=== PATIENT | male | born 2000 | race Hispanic/Latino ===

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

== ENCOUNTER 2023-10-04 09:58 | Emergency (ER) | payer BC, SELFPAY ==
--- NOTE | ~2023-10-04 | CT_ITS ---
EXAMINATION: CT brain wo con DATE: 10/04/2023 11:43 INDICATION: Headache. TECHNIQUE: Computed tomography (CT) of the head was performed without intravenous contrast. The mA wa s adjusted according to patient size. Iterative reconstruction technique was employed. The dose-lengt h product was 605.33 mGy-cm. COMPARISON: None FINDINGS: There is no intracranial hemorrhage, acute infarction, or abnormal intracranial mass lesion . The ventricles are normal in size. The paranasal sinuses are clear. The orbits are normal. The mast oid air cells are normal. IMPRESSION: 1. Normal brain. Reviewed, dictated and finalized at location A. IMPRESSION: 1. Normal brain.
[2023-10-04 10:02] VITALS: BP 124/67; PULSE 71; RESP 20; TEMP 36.6; O2SAT 98
--- NOTE | 2023-10-04 10:54 | ED.GENADULT ---
HPI - General Adult General Chief complaint: Eye Problems Stated complaint: blurry vision Time Seen by Provider: 10/04/23 10:24 Source: patient and family Mode of arrival: ambulatory Limitations: no limitations History of Present Illness HPI narrative: Pt is a 23-year-old male who presents to the ER with blurry vision. He reports his blurry vision started around 0930 this morning, then he developed a metallic taste in his mouth. When pt arrived to the ER he started having a headache that wraps around my head. He reports his blurry vision has resolved and the headache is intermittent in strength. Pt reports he hasn't had any recent feeling of illness. He denies weakness in extremities, neck stiffness, or loss of sensation. Related Data Allergies Allergy/AdvReac Type Severity Reaction Status Date / Time No Known Allergies Allergy Unverified 07/18/21 18:31 Review of Systems Review of Systems: All systems reviewed & are unremarkable except as noted in HPI and below PMFSH Past Medical History Medical History COVID-19 May of 2020 and July 2021 Surgical History Surgical History S/P trigger finger release Social History Social History Smoking status: Never smoker Alcohol intake: never Substance use type: does not use Living arrangements: with roommate(s) Gender identity (if verbalized by the patient): Male Exam Narrative: GENERAL: Well-appearing, well-nourished and in no acute distress. HEENT: Head normocephalic, atraumatic. Eyes pupils equal round and reactive to light, extraocular movements intact. NECK: Supple, normal range of motion, no JVD. No lymphadenopathy. CARDIAC: Regular rate and rhythm without murmurs, rubs or gallops. RESPIRATORY: Clear to auscultation bilaterally. No wheezes, rales or rhonchi. EXTREMITIES: Normal range of motion, no swelling, clubbing or other deformities. NEUROLOGICAL: Cranial nerves II through XII grossly intact, no focal deficits noted. Normal gait, normal speech. SKIN: Warm, dry, normal color, no rashes, no lesions. Course Vital Signs Vital signs: Vital Signs Temperature 36.6 C 10/04/23 10:02 Pulse Rate 71 10/04/23 10:02 Respiratory Rate 20 10/04/23 10:02 Blood Pressure 124/67 10/04/23 10:02 Pulse Oximetry 98 10/04/23 10:02 Oxygen Delivery Room Air 10/04/23 10:02 Temperature 36.6 C 10/04/23 10:02 Pulse Rate 63 10/04/23 12:31 Respiratory Rate 16 10/04/23 12:31 Blood Pressure 120/82 10/04/23 12:31 Pulse Oximetry 100 10/04/23 12:31 Oxygen Delivery Room Air 10/04/23 10:02 Medical Decision Making MDM Narrative Medical decision making narrative: Pt is a 23-year-old male who presents to the ER with blurry vision. He reports his blurry vision started around 0930 this morning, then he developed a metallic taste in his mouth. When pt arrived to the ER he started having a headache that wraps around my head. He reports his blurry vision has resolved and the headache is intermittent in strength. Pt reports he hasn't had any recent feeling of illness. He denies weakness in extremities, neck stiffness, or loss of sensation. Pt's physical exam is unremarkable. His neurological checks are all WNL. He has equal strength in all extremities. PERRLA. Will obtain head CT scan, as this is pt's first severe headache, as advised by Ione Subarachnoid Hemorrhage (SAH) Rule for Headache Evaluation. Pt's CT scan was negative. Results relayed to pt and his parents. Advised pt to follow-up with PCP if his headache symptoms continue. Neuro examination continues to be unremarkable. Pt and his parents verbalize understanding of when pt should return to the ER. Differential Diagnosis Differential Diagnosis: migraine headache, subarachnoid hemorrhage, t
[2023-10-04 12:31] VITALS: BP 120/82; PULSE 63; RESP 16; O2SAT 100
[2023-10-04] MEDS: IBUPROFEN 600 MG TABLET PO (12:58)
== END 2023-10-04 13:15 | disposition home or self-care (01) ==
PROVIDERS: Emergency Provider Registered Nurse
DX: R51.9 Headache, unspecified (principal); Z86.16 Personal history of COVID-19
CPT/HCPCS: 70450; 99284; A9270

== ENCOUNTER 2024-01-01 17:40 | Emergency (ER) | payer BC, SELFPAY ==
[2024-01-01] VITALS (11 sets, daily range): BP systolic 110–122; BP diastolic 70–73; PULSE 56–70; RESP 14–26; TEMP 36.7; O2SAT 97–100
--- NOTE | ~2024-01-01 | XR_ITS ---
CHEST RADIOGRAPH, PA AND LATERAL CLINICAL HISTORY: chest pain . COMPARISON: 07/18/2021 TECHNIQUE: PA and lateral views of the chest. FINDINGS The cardiomediastinal silhouette is unremarkable. The lungs are clear. Visualized osseous structures and soft tissues are unremarkable. IMPRESSION: No focal infiltrate or effusion. Reviewed, dictated and finalized at location A. HING COACH
--- NOTE | 2024-01-01 17:48 | ECG_ITS ---
Test Date: 2024-01-01 17:50:54 Measurements Intervals Hospers Rate: 56 P: 45 HI: 136 QRS: 87 QRSD: 97 T: 36 QT: 380 QTc: 368 Interpretive Statements SINUS BRADYCARDIA MINIMAL Q WAVES- INF/LAT LEADS BASELINE ARTIFACT- I, III, AVR, AVL, AVF BORDERLINE ECG No previous ECG available for comparison Electronically Signed On 01-01-2024 20:24:50 [employer] OPER[employer] by Remberto Viramontes D.O.
--- NOTE | 2024-01-01 17:49 | ED_ITS ---
HPI - Chest Pain General Chief Complaint: Chest Pain Stated Complaint: chest pain X9 hours Time Seen by Provider: 01/01/24 17:48 History of Present Illness HPI narrative: patient is a 23-year-old male who presents ER with chest pain. Woke up with the pain this morning at 8:00 a.m.. It is over left chest wall anteriorly. No difficulty breathing. No difficulty swallowing. No exertional discomfort. Worse with moving his arm. Denies any trauma. No family history of early cardiac . No hemoptysis. Has not tried a pain medication. Related Data Allergies Allergy/AdvReac Type Severity Reaction Status Date / Time No Known Allergies Allergy Unverified 01/01/24 17:41 Review of Systems Review of Systems: All systems reviewed & are unremarkable except as noted in HPI and below Constitutional: Constitutional: Reports no additional constitutional complaints ENT: Reports system reviewed and no additional complaints, except as documented Cardiovascular: Cardiovascular: Reports chest pain, Denies rapid heart rate and Denies radiating jaw, neck or arm pain Respiratory: Respiratory: Reports no additional respiratory complaints Gastrointestinal: Gastrointestinal: Reports no additional gastrointestinal complaints [facility] Past Medical History Medical History COVID-19 May of 2020 and July 2021 Surgical History Surgical History S/P trigger finger release Social History Social History Smoking status: Never smoker Alcohol intake: never Substance use type: does not use Living arrangements: with roommate(s) Gender identity (if verbalized by the patient): Male Exam Narrative: GENERAL: Well-appearing, well-nourished, and in no acute distress. HEAD: Normocephalic, atraumatic. ENT: Mucous membranes moist. NECK: Supple. CHEST: Clear to auscultation. No respiratory distress. Mild tenderness over left pectoralis. HEART: Regular rate and rhythm. Normal peripheral pulses. ABDOMEN: Soft, nontender, nondistended. EXTREMITIES: Normal range of motion. No edema. SKIN: Warm, dry, no rash. NEURO: Alert and oriented x3. PSYCH: Normal mood and affect. Course Course Emergency Course: Chest pain nearly resolved with Toradol. Feels improved. Informed of lab and imaging EKG results. Appropriate for discharge home. Vital Signs Vital signs: Vital Signs Temperature 98.0 F 01/01/24 17:48 Pulse Rate 60 01/01/24 17:48 Respiratory Rate 16 01/01/24 17:48 Blood Pressure 110/70 01/01/24 17:48 Pulse Oximetry 99 01/01/24 17:48 Oxygen Delivery Room Air 01/01/24 17:48 Temperature 98.0 F 01/01/24 17:48 Pulse Rate 59 L 01/01/24 19:20 Respiratory Rate 18 01/01/24 19:20 Blood Pressure 122/73 01/01/24 19:20 Pulse Oximetry 97 01/01/24 19:20 Oxygen Delivery Room Air 01/01/24 18:06 MDM - Chest Pain Lab Data 01/01/24 18:01 01/01/24 18:01 Labs: Lab Results 01/01/24 Range/Units 18:01 WBC 5.1 (4.5-10.0) K/mm3 RBC 4.56 L (4.6-6.20) M/mm3 Hgb 14.0 (14.0-18.0) g/dL Hct 40.9 L (42.0-52.0) % MCV 89.7 (80-100) fl MCH 30.7 (26-34) pg MCHC 34.2 (32-36) g/dl RDW 12.2 (11.5-14.5) % Plt Count 249 (150-375) k/mm3 MPV 10.4 (7.4-10.4) fl Immature Gran % (Auto) 0.0 (0-0.5) % Neut % (Auto) 40.5 L (45.5-73.1) % Lymph % (Auto) 45.3 H (18.3-44.2) % [place] % (Auto) 12.2 H (2.6-8.5) % Eos % (Auto) 1.2 (0-4.4) % Baso % (Auto) 0.8 (0.2-1.2) % Lymph # (Auto) 2.31 (0.9-3.2) K/mm3 [place] # (Auto) 0.6 (0.1-0.6) K/mm3 Eos # (Auto) 0.1 (0-0.3) K/mm3 Baso # (Auto) 0.0 (0.0-0.1) K/mm3 Abs Immat Gran (auto) 0.00 (0.00-0.031) K/mm3 Absolute Neuts (auto) 2.1 (1.3-6.7) K/mm3 Absolute Nucleated RBC 0.000 (0.0-0.012) K/mm3 Nucleated RBC % 0.0 (0.0-0.2) % PT 13.9 (11.1-14.7) Seconds INR 1.0 APTT 26.8 (22.3-36.8) Seconds Sodium 138 (137-145) mmol/L Potassium 4.0 (3.4-5.0) mmol/L Chloride 104 (98-107) mmol/L Carbon Dioxide 27 (22-30) mmol/L Anion Gap 7 (4-12) mmol/L BUN 9 (9-20) mg/dL Creatinine 0.90 (0.7-1.3) mg/dL Estim Creat Clear Calc 110 ml/min Estimated GFR > 60 (59 - ) Glucose 94 (65-110) mg/dL Calcium 9.8 (8.4-10.2) mg/dL Total Bilirubin 0.4 (0.2-1.3) mg/dL AST 44 (17-59) U/L ALT 28 (6-50) U/L Alkaline Phosphatase 56 (38-126) U/L Troponin I < 0.012 (0.000-0.034) ng/mL Total Protein 8.0 (6.3-8.2) g/dL Albumin 4.7 (3.5-5.1) g/dL Lipase 110 (23-300) U/L Imaging Data Radiologist's impression: ITS Impressions Chest X-Ray 01/01/24 18:15 IMPRESSION: No focal infiltrate or effusion. ECG Data EKG #1: ECG completion date: 01/01/24 ECG completion time: 17:50 EKG Interpretation: bradycardia (56), sinus rhythm, no ectopy, no ST changes, normal QRS, normal QT and NL axis Discharge Plan Discharge Clinical Impression: Atypical chest pain Patient Disposition: Home, Self-Care Condition: Stable Instructions: Chest Wall Pain (ED) Additional Instructions: Please return to the emergency department if you develop severe and persistent chest pain, difficulty breathing, dizziness, leg swelling or if you are coughing up blood as these can be signs of a medical emergency. Please call your doctor for a follow up appointment to determine the need for further testing. Prescriptions: No Action albuterol sulfate 90 mcg/actuation HFA aerosol inhaler 2 puff inhalation QID PRN (Reason: shortness of breath or wheezing) Qty: 8.5 0RF Follow-up/Referrals: UNKNOWN,DOCTOR [Primary Care Provider] - 1 Week Quality HEART score for chest pain patients History: slightly suspicious ECG: normal Age: < or = to 45 years Risk factors: no risk factors known Troponin: < or = to 1x normal limit Heart score: 0
[2024-01-01 18:21] LABS: Alanine Aminotransferase 28 U/L (6-50); Albumin Level 4.7 g/dL (3.5-5.1); Alkaline Phosphatase 56 U/L (38-126); Anion Gap 7 mmol/L (4-12); Aspartate Amino Transferase 44 U/L (17-59); Bilirubin,Total 0.4 mg/dL (0.2-1.3); Blood Urea Nitrogen 9 mg/dL (9-20); Calcium 9.8 mg/dL (8.4-10.2); Carbon Dioxide 27 mmol/L (22-30); Chloride 104 mmol/L (98-107); Estimated CRCL calculation 110 ml/min; Estimated Glomerular Filt Rate > 60; Glucose 94 mg/dL (65-110); Lipase 110 U/L (23-300); Partial Thromboplastin Time 26.8 Seconds (22.3-36.8); Prothrombin Time 13.9 Seconds (11.1-14.7); Sodium 138 mmol/L (137-145)
[2024-01-01 18:33] LABS: Troponin I < 0.012 ng/mL (0.000-0.034)
[2024-01-01] MEDS: KETOROLAC 30 MG/ML VIAL (*BKC) IV PUSH (19:18)
[2024-01-01] MEDS: ASPIRIN 81 MG CHEWABLE TABLET 324 MG PO (19:19)
[2024-01-01 19:30] LABS: Basophils Percent Auto 0.8 % (0.2-1.2); Eosinophils Absolute Auto 0.1 K/mm3 (0-0.3); Eosinophils Percent Auto 1.2 % (0-4.4); Hematocrit 40.9 % (42.0-52.0); Lymphocytes Absolute Auto 2.31 K/mm3 (0.9-3.2); Lymphocytes Percent Auto 45.3 % (18.3-44.2); Mean Corpuscular HGB Conc 34.2 g/dl (32-36); Mean Corpuscular Hemoglobin 30.7 pg (26-34); Mean Corpuscular Volume 89.7 fl (80-100); Mean Platelet Volume 10.4 fl (7.4-10.4); Monocytes Absolute Auto 0.6 K/mm3 (0.1-0.6); Monocytes Percent Auto 12.2 % (2.6-8.5); Neutrophils Absolute Auto 2.1 K/mm3 (1.3-6.7); Neutrophils Percent Auto 40.5 % (45.5-73.1); Platelet Count Result 249 k/mm3 (150-375); Red Blood Count 4.56 M/mm3 (4.6-6.20); Red Cell Distribution Width 12.2 % (11.5-14.5); White Blood Count 5.1 K/mm3 (4.5-10.0)
== END 2024-01-01 21:00 | disposition home or self-care (01) ==
PROVIDERS: Emergency Provider Emergency Medicine
DX: R07.89 Other chest pain (principal); Z86.16 Personal history of COVID-19; R00.1 Bradycardia, unspecified
CPT/HCPCS: 36415; 71046; 80053; 83690; 84484; 85025; 85610; 85730; 93005; 96374; 99284; A9270; J1885